=== PATIENT | male | born 1945 | race African-American/Black ===

== ENCOUNTER 2017-08-11 18:40 | Inpatient (IN) | payer MEDICARE, MEDICAID ==
[~2017-08-11] VITALS: Ht 190.5 cm; Wt 90.7 kg
[~2017-08-11 18:40] MED LIST: ASPI-867 PO; BENA40TA3 PO; CALC-1042 PO; CLOP75TA15 PO; DOCU100T8; FERR140T PO; FLONAS NS; GABA-531 PO; HYDROCODONE PO; IBUP-2028 PO; LEVPEN SQ; LORA10CA PO; MAGN400C PO; MELA300T PO; OMEP20CA10 PO; P20 PO; SIMV10TA6 PO; SUMA25TA9 PO; TRAM50TA PO; VERA-3; VITAMIN B2 PO; [UNRECOGNIZED DRUG - CODE] PO
[2017-08-11] MEDS ORDERED: ONDANSETRON HCL 4MG/2ML VIAL IV STA (19:20)
[2017-08-11] MEDS ORDERED: FAMOTIDINE 20MG/2ML VIAL IV STA (19:20)
[2017-08-11] MEDS ORDERED: MORPHINE SULFATE 4 MG/ML CPJ (NOT FOR IM USE) IV STA (19:20)
[2017-08-11 19:52] LABS: HEMATOCRIT. 35.6 % (42.0-52.0); HEMOGLOBIN. 11.6 g/dL (14.0-18.0); MEAN PLATELET VOLUME 9.7 fl (7.4-10.4); PLATELET 132 x1000/uL (130-400); RED BLOOD CELL COUNT 4.29 mill/uL (4.7-6.1); RED CELL DISTRIBUTION WIDTH 18.3 % (11.6-14.6)
[2017-08-11 20:00] LABS: INR 1.1; PROTHROMBIN TIME 11.4 sec (9.4-11.6)
[2017-08-11] MEDS ORDERED: MORPHINE SULFATE 10 MG/ML CPJ IV NR (20:00)
[2017-08-11 20:04] LABS: CHLORIDE 106 mEq/L (98-107)
[2017-08-11 20:09] LABS: CARBON DIOXIDE 27 mEq/L (21-32); ETHANOL BLOOD < 10 mg/dL
[2017-08-11 20:14] LABS: TROPONIN I < 0.02 ng/mL (0.00-0.04)
[2017-08-11 20:41] LABS: CLARITY URINE CLOUDY (CLEAR); COLOR URINE YELLOW (YELLOW); GLUCOSE URINE NEGATIVE (NEGATIVE); KETONES URINE NEGATIVE (NEGATIVE); LEUKOCYTE ESTERASE URINE 3+ (NEGATIVE); NITRITE URINE POSITIVE (NEGATIVE); OCCULT BLOOD URINE 3+ (NEGATIVE); PROTEIN URINE 2+ (NEGATIVE); SPECIFIC GRAVITY URINE 1.018 (1.005-1.030)
[2017-08-11 20:42] LABS: PLATELET ESTIMATE NORMAL
[2017-08-11 20:55] LABS: *AMPHETAMINES SCREEN URINE NEGATIVE (NEGATIVE); *BARBITURATES SCREEN URINE NEGATIVE (NEGATIVE); *BENZODIAZEPINES SCREEN URINE NEGATIVE (NEGATIVE); *COCAINE SCREEN URINE NEGATIVE (NEGATIVE); CANNABINOID URINE SCREEN NEGATIVE (NEGATIVE); METHADONE URINE SCREEN NEGATIVE (NEGATIVE); OPIATES URINE SCREEN NEGATIVE (NEGATIVE); PHENCYCLIDINE URINE SCREEN NEGATIVE (NEGATIVE)
[2017-08-11] MEDS ORDERED: CEFTRIAXONE 1 G PREMIX 50 ML IV NR (21:30)
[2017-08-11] MEDS ORDERED: NA PHOS,M-B/NA PHOS,DI-BA ENEMA 118ML PR PRN (22:45)
[2017-08-11] MEDS ORDERED: IPRATROPIUM/ALBUTEROL 0.5-3(2.5)MG/3ML NEB INH PRN (22:45)
[2017-08-11] MEDS ORDERED: HYDROCODONE/APAP 7.5/325MG 1 TAB TABLET PO PRN (22:45)
[2017-08-11] MEDS ORDERED: ACETAMINOPHEN 325MG TABLET PO PRN (22:45)
[2017-08-11] MEDS ORDERED: ONDANSETRON HCL 4MG/2ML VIAL IV PRN (22:45)
[2017-08-11] MEDS ORDERED: DOCUSATE SODIUM 100MG CAPSULE PO PRN (22:45)
[2017-08-11] MEDS ORDERED: MAGNESIUM/ALUMINUM HYDROXIDE/SIMETHICONE 30ML UDC PO PRN (22:45)
[2017-08-11] MEDS ORDERED: GUAIFENESIN 200MG/10ML SUGAR FREE UDC PO PRN (22:45)
[2017-08-11] MEDS: MORPHINE SULFATE 2 MG/ML CPJ (NOT FOR IM USE) IV PRN (23:12)
[2017-08-12] VITALS: BP 162/84
[2017-08-12 00:30] LABS: CARBON DIOXIDE 28 mEq/L (21-32); CHLORIDE 107 mEq/L (98-107)
[2017-08-12] MEDS ORDERED: SODIUM CHLORIDE 0.45% 1,000 ML IV SCH (03:00)
[2017-08-12] MEDS ORDERED: LEVOFLOXACIN 500MG PREMIX 100 ML IV SCH (04:00)
[2017-08-12] MEDS: MORPHINE SULFATE 2 MG/ML CPJ (NOT FOR IM USE) IV PRN ×3 (04:30→17:21)
[2017-08-12 04:33] VITALS: BP 113/68
[2017-08-12 07:55] LABS: BASOPHILS % 0.4 % (0.0-2.0); EOSINOPHILS % 0.8 % (0.0-5.0); HEMATOCRIT. 32.1 % (42.0-52.0); HEMOGLOBIN. 10.3 g/dL (14.0-18.0); LYMPHOCYTES % 24.6 % (20.0-50.0); MEAN CORPUSCULAR HEMOGLOBIN 26.4 pg (28.0-32.0); MEAN CORPUSCULAR VOLUME 82.3 fL (80.0-94.0); MEAN PLATELET VOLUME 10.1 fl (7.4-10.4); MONOCYTES % 14.6 % (2.0-8.0); NEUTROPHILS % 59.6 % (40.0-76.0); PLATELET 118 x1000/uL (130-400); RED CELL DISTRIBUTION WIDTH 18.4 % (11.6-14.6)
[2017-08-12 08:00] VITALS: BP 135/68
[2017-08-12 08:01] LABS: CARBON DIOXIDE 28 mEq/L (21-32); CHLORIDE 106 mEq/L (98-107)
[2017-08-12] MEDS ORDERED: CLOP75TA16 PO (08:04)
[2017-08-12] MEDS ORDERED: ASPI-1159 PO (08:04)
[2017-08-12] MEDS ORDERED: TAMS-11 PO (08:04)
[2017-08-12] MEDS: ENOXAPARIN 40MG/0.4ML SYR SUBCUT SCH (09:58)
[2017-08-12 12:00] VITALS: BP 159/65
[2017-08-12 16:00] VITALS: BP 148/68
[2017-08-12] MEDS: CLONIDINE 0.1MG TABLET PO PRN (17:19)
[2017-08-12 20:00] VITALS: BP 127/65
[2017-08-13] MEDS: MORPHINE SULFATE 2 MG/ML CPJ (NOT FOR IM USE) IV PRN ×5 (02:21→22:09)
[2017-08-13 02:33] VITALS: BP 164/70
[2017-08-13 04:00] VITALS: BP 159/68
[2017-08-13] MEDS: LEVOFLOXACIN 500MG PREMIX 100 ML IV SCH (04:53)
[2017-08-13 08:00] VITALS: BP 160/65
[2017-08-13] MEDS: ENOXAPARIN 40MG/0.4ML SYR SUBCUT SCH (10:06)
[2017-08-13 12:00] VITALS: BP 148/62
[2017-08-13 16:00] VITALS: BP 145/65
[2017-08-13 20:00] VITALS: BP 157/73
[2017-08-14] VITALS: BP 145/85
[2017-08-14] MEDS: DIPHENHYDRAMINE 50MG/ML VIAL IV PRN ×3 (01:04→05:42)
[2017-08-14] MEDS: LORAZEPAM 0.5MG TABLET PO PRN ×3 (01:04→05:42)
[2017-08-14 04:00] VITALS: BP 176/67
[2017-08-14] MEDS: LEVOFLOXACIN 500MG PREMIX 100 ML IV SCH (04:04)
[2017-08-14] MEDS: MORPHINE SULFATE 2 MG/ML CPJ (NOT FOR IM USE) IV PRN (05:12)
[2017-08-14] MEDS: CLONIDINE 0.1MG TABLET PO PRN (05:42)
[2017-08-14 07:44] LABS: BASOPHILS % 0.8 % (0.0-2.0); EOSINOPHILS % 0.8 % (0.0-5.0); HEMATOCRIT. 33.5 % (42.0-52.0); HEMOGLOBIN. 10.7 g/dL (14.0-18.0); LYMPHOCYTES % 19.6 % (20.0-50.0); MEAN CORPUSCULAR HEMOGLOBIN 26.2 pg (28.0-32.0); MEAN CORPUSCULAR VOLUME 81.8 fL (80.0-94.0); MEAN PLATELET VOLUME 9.7 fl (7.4-10.4); MONOCYTES % 13.4 % (2.0-8.0); NEUTROPHILS % 65.4 % (40.0-76.0); PLATELET 154 x1000/uL (130-400); RED BLOOD CELL COUNT 4.09 mill/uL (4.7-6.1); RED CELL DISTRIBUTION WIDTH 17.9 % (11.6-14.6)
[2017-08-14 08:00] VITALS: BP 133/67
[2017-08-14 08:41] LABS: CARBON DIOXIDE 26 mEq/L (21-32); CHLORIDE 106 mEq/L (98-107)
[2017-08-14] MEDS: ENOXAPARIN 40MG/0.4ML SYR SUBCUT SCH (08:55)
[2017-08-14] MEDS ORDERED: DEXTROSE 50% WATER 50ML SYRINGE IV PRN (11:45)
[2017-08-14 12:00] VITALS: BP 193/77
[2017-08-14] MEDS: INSULIN LISPRO 100 UNITS/ML SUBCUT SCH ×3 (12:26→21:00)
[2017-08-14] MEDS: BLOOD SUGAR DIAGNOSTIC STRIP TEST SCH ×3 (12:26→21:00)
[2017-08-14 16:00] VITALS: BP 124/77
[2017-08-14 20:00] VITALS: BP 136/75
[2017-08-15] VITALS: BP 134/60
[2017-08-15 04:00] VITALS: BP 137/72
[2017-08-15] MEDS: LEVOFLOXACIN 500MG PREMIX 100 ML IV SCH (05:01)
[2017-08-15] MEDS: BLOOD SUGAR DIAGNOSTIC STRIP TEST SCH ×2 (06:35→12:20)
[2017-08-15 06:52] LABS: HEMATOCRIT 33.4 % (42.0-52.0); MEAN CORPUSCULAR HEMOGLOBIN 26.8 pg (28.0-32.0); MEAN CORPUSCULAR VOLUME 81.3 fL (80.0-94.0); PLATELET 150 x1000/uL (130-400); RED CELL DISTRIBUTION WIDTH 17.9 % (11.6-14.6)
[2017-08-15 08:00] VITALS: BP 175/84
[2017-08-15 08:03] LABS: CARBON DIOXIDE 27 mEq/L (21-32); CHLORIDE 104 mEq/L (98-107)
[2017-08-15 12:00] VITALS: BP 143/69
[2017-08-15 14:02] VITALS: BP 143/69
[2017-08-16] MEDS ORDERED: LEVOFLOXACIN 500MG TABLET PO SCH (11:00)
== END 2017-08-15 14:35 | disposition home or self-care (01) | DRG 690 ==
LOC: ER 19:13 → ENRESERV 22:05 → 6EST 22:11 → EDBEDREQSVC 22:18 → EDBEDREQTM 22:18 → EDBEDREQ 22:18 → ENRESERV 23:15
PROVIDERS: ADMIT Internal Medicine; ATTEND Internal Medicine
DX: N39.0 Urinary tract infection, site not specified (principal); I11.0 Hypertensive heart disease with heart failure; E11.9 Type 2 diabetes mellitus without complications; I50.9 Heart failure, unspecified; R65.10 Systemic inflammatory response syndrome (SIRS) of non-infectious origin without acute organ dysfunction; E86.0 Dehydration; K59.00 Constipation, unspecified; I25.10 Atherosclerotic heart disease of native coronary artery without angina pectoris; Z79.4 Long term (current) use of insulin; Z79.82 Long term (current) use of aspirin; Z79.02 Long term (current) use of antithrombotics/antiplatelets; Z79.899 Other long term (current) drug therapy; I25.2 Old myocardial infarction
CPT/HCPCS: 36415; 71010; 74176; 80048; 80053; 80305; 81001; 82962; 83605; 83690; 83880; 84484; 85025; 85027; 85610; 87086; 93005; 96365; 96375; 96376; 99285; G0482; J0696; J1200; J1650; J1956; J2270; J2405; J3490

== ENCOUNTER 2019-01-12 19:44 | Inpatient (IN) | payer MEDICARE, MEDICAID ==
[~2019-01-12] VITALS: Ht 193 cm; Wt 94.4 kg
[~2019-01-12 19:44] MED LIST changes: +ASA5EC PO; +ASPI-1159 PO; -ASPI-867 PO; -BENA40TA3 PO; +BENA40TA9 PO; +CLOP75TA16 PO; -FERR140T PO; +FERR140T2 PO; +TAMS-11 PO
[2019-01-12] MEDS ORDERED: SODIUM CHLORIDE 0.9% 1,000 ML IV ONE (21:02)
[2019-01-12] MEDS ORDERED: ONDANSETRON HCL 4MG/2ML INJ IV ONE (21:15)
[2019-01-12] MEDS ORDERED: FENTANYL CITRATE/PF 50MCG/ML 2ML VIAL IV ONE (21:15)
[2019-01-12 21:34] LABS: HEMATOCRIT. 33.5 % (42.0-52.0); MEAN CORPUSCULAR HEMOGLOBIN 27.8 pg (28.0-32.0); MEAN PLATELET VOLUME 8.7 fl (7.4-10.4); PLATELET 210 x1000/uL (130-400); RED BLOOD CELL COUNT 3.94 mill/uL (4.7-6.1); RED CELL DISTRIBUTION WIDTH 17.1 % (11.6-14.6)
[2019-01-12 21:38] LABS: CHLORIDE 108 mEq/L (98-107)
[2019-01-12 21:42] LABS: PARTIAL THROMBOPLASTIN TIME 27.6 sec (23.4-31.0); PROTHROMBIN TIME 10.7 sec (9.6-11.0)
[2019-01-12 21:48] LABS: PLATELET ESTIMATE NORMAL
[2019-01-12] MEDS ORDERED: CLONIDINE 0.1MG TABLET PO PRN (22:45)
[2019-01-12] MEDS ORDERED: DOCUSATE SODIUM 100MG CAPSULE PO PRN (22:45)
[2019-01-12] MEDS ORDERED: GUAIFENESIN 200MG/10ML SUGAR FREE UDC PO PRN (22:45)
[2019-01-12] MEDS ORDERED: LORAZEPAM 0.5MG TABLET PO PRN (22:45)
[2019-01-12] MEDS ORDERED: LEVOFLOXACIN 500MG PREMIX 100 ML IV ONE (22:45)
[2019-01-12] MEDS ORDERED: IPRATROPIUM/ALBUTEROL 0.5-3(2.5)MG/3ML NEB INH PRN (22:45)
[2019-01-12] MEDS ORDERED: MAGNESIUM/ALUMINUM HYDROXIDE/SIMETHICONE 30ML UDC PO PRN (22:45)
[2019-01-12] MEDS ORDERED: DEXTROSE 50% WATER 50ML SYRINGE IV PRN (22:45)
[2019-01-12] MEDS ORDERED: ACETAMINOPHEN 325MG TABLET PO PRN (22:45)
[2019-01-12] MEDS ORDERED: ONDANSETRON HCL 4MG/2ML INJ IV PRN (22:45)
[2019-01-12] MEDS ORDERED: ZOLPIDEM TARTRATE 5MG TABLET PO PRN (22:45)
[2019-01-12] MEDS ORDERED: CEFTRIAXONE 1 G PREMIX 50 ML IV ONE (22:45)
[2019-01-12] MEDS: MORPHINE SULFATE 4 MG/ML CPJ (NOT FOR IM USE) IV PRN (23:57)
[2019-01-13] VITALS (16 sets, daily range): BP systolic 104–196; BP diastolic 40–118
[2019-01-13 00:01] LABS: FOLIC ACID (FOLATE) SERUM >20 ng/mL ng/mL (>5.38)
[2019-01-13 00:11] LABS: VITAMIN B12 SERUM 536 pg/mL (211-911)
[2019-01-13 01:54] LABS: CLARITY URINE TURBID (CLEAR); KETONES URINE 1+ (NEGATIVE); LEUKOCYTE ESTERASE URINE 2+ (NEGATIVE); NITRITE URINE POSITIVE (NEGATIVE); OCCULT BLOOD URINE 3+ (NEGATIVE); PROTEIN URINE 4+ (NEGATIVE); SPECIFIC GRAVITY URINE 1.038 (1.005-1.030)
[2019-01-13 02:00] LABS: COLOR URINE BLOODY (YELLOW)
[2019-01-13 02:01] LABS: *AMPHETAMINES SCREEN URINE NEGATIVE (NEGATIVE); *BARBITURATES SCREEN URINE NEGATIVE (NEGATIVE); *BENZODIAZEPINES SCREEN URINE NEGATIVE (NEGATIVE); CANNABINOID URINE SCREEN NEGATIVE (NEGATIVE); PHENCYCLIDINE URINE SCREEN NEGATIVE (NEGATIVE)
[2019-01-13 02:02] LABS: *COCAINE SCREEN URINE NEGATIVE (NEGATIVE); METHADONE URINE SCREEN NEGATIVE (NEGATIVE); OPIATES URINE SCREEN PRESUMTIVE POSITIVE (NEGATIVE)
[2019-01-13] MEDS: BLOOD SUGAR DIAGNOSTIC STRIP TEST SCH ×4 (07:30→21:00)
[2019-01-13] MEDS: INSULIN LISPRO 100 UNITS/ML SUBCUT SCH ×4 (08:00→21:00)
[2019-01-13] MEDS: FAMOTIDINE 20MG TABLET PO SCH ×2 (08:40→21:11)
[2019-01-13] MEDS: AMLODIPINE 10MG TABLET PO SCH (08:40)
[2019-01-13] MEDS: ASCORBIC ACID 500 MG TABLET PO SCH ×2 (08:41→21:11)
[2019-01-13] MEDS: METOPROLOL TARTRATE 25MG TABLET PO SCH ×2 (08:41→21:00)
[2019-01-13] MEDS: TRAMADOL 50MG TABLET PO PRN (08:42)
[2019-01-13] MEDS: CEFTRIAXONE 1 G PREMIX 50 ML IV SCH (17:27)
[2019-01-13] MEDS: LEVOFLOXACIN 500MG PREMIX 100 ML IV SCH (17:28)
[2019-01-13] MEDS ORDERED: CEFTRIAXONE 1 G PREMIX 50 ML IV SCH (22:00)
[2019-01-13] MEDS ORDERED: LEVOFLOXACIN 500MG PREMIX 100 ML IV SCH (23:00)
[2019-01-14] VITALS (12 sets, daily range): BP systolic 128–151; BP diastolic 51–86
[2019-01-14] MEDS: BLOOD SUGAR DIAGNOSTIC STRIP TEST SCH ×4 (07:30→20:46)
[2019-01-14] MEDS: INSULIN LISPRO 100 UNITS/ML SUBCUT SCH ×4 (08:00→20:52)
[2019-01-14] MEDS: FAMOTIDINE 20MG TABLET PO SCH ×2 (09:01→20:43)
[2019-01-14] MEDS: AMLODIPINE 10MG TABLET PO SCH (09:02)
[2019-01-14] MEDS: ASCORBIC ACID 500 MG TABLET PO SCH ×2 (09:02→20:43)
[2019-01-14] MEDS: METOPROLOL TARTRATE 25MG TABLET PO SCH ×2 (09:08→20:44)
[2019-01-14] MEDS: LEVOFLOXACIN 500MG PREMIX 100 ML IV SCH (16:43)
[2019-01-14] MEDS: TRAMADOL 50MG TABLET PO PRN (16:48)
[2019-01-14] MEDS: CEFTRIAXONE 1 G PREMIX 50 ML IV SCH (17:58)
[2019-01-15] VITALS (10 sets, daily range): BP systolic 124–161; BP diastolic 64–85
[2019-01-15] MEDS: INSULIN LISPRO 100 UNITS/ML SUBCUT SCH ×3 (08:00→21:00)
[2019-01-15] MEDS: BLOOD SUGAR DIAGNOSTIC STRIP TEST SCH ×3 (08:00→20:35)
[2019-01-15] MEDS: METOPROLOL TARTRATE 25MG TABLET PO SCH ×2 (09:00→20:38)
[2019-01-15] MEDS: FAMOTIDINE 20MG TABLET PO SCH ×2 (09:26→20:36)
[2019-01-15] MEDS: AMLODIPINE 10MG TABLET PO SCH (09:26)
[2019-01-15] MEDS: ASCORBIC ACID 500 MG TABLET PO SCH ×2 (09:26→20:36)
[2019-01-15] MEDS: LEVOFLOXACIN 500MG TABLET PO SCH (11:16)
[2019-01-15] MEDS: TRAMADOL 50MG TABLET PO PRN (20:37)
[2019-01-16] VITALS (12 sets, daily range): BP systolic 98–191; BP diastolic 44–77
[2019-01-16] MEDS: MORPHINE SULFATE 4 MG/ML CPJ (NOT FOR IM USE) IV PRN (00:47)
[2019-01-16] MEDS: BLOOD SUGAR DIAGNOSTIC STRIP TEST SCH ×4 (07:30→21:16)
[2019-01-16] MEDS: INSULIN LISPRO 100 UNITS/ML SUBCUT SCH ×4 (08:00→21:00)
[2019-01-16] MEDS: ASCORBIC ACID 500 MG TABLET PO SCH ×2 (08:38→20:55)
[2019-01-16] MEDS: AMLODIPINE 10MG TABLET PO SCH (08:38)
[2019-01-16] MEDS: FAMOTIDINE 20MG TABLET PO SCH ×2 (08:38→20:54)
[2019-01-16] MEDS: METOPROLOL TARTRATE 25MG TABLET PO SCH ×2 (08:38→20:53)
[2019-01-16] MEDS: LEVOFLOXACIN 500MG TABLET PO SCH (11:28)
[2019-01-16] MEDS: CEFTRIAXONE 1 G PREMIX 50 ML IV SCH ×2 (16:38→16:40)
[2019-01-17] VITALS: BP 101/47
[2019-01-17 04:00] VITALS: BP 151/53
[2019-01-17] MEDS: BLOOD SUGAR DIAGNOSTIC STRIP TEST SCH ×4 (07:01→21:41)
[2019-01-17] MEDS: INSULIN LISPRO 100 UNITS/ML SUBCUT SCH ×4 (07:02→21:00)
[2019-01-17 08:00] VITALS: BP 117/72
[2019-01-17] MEDS: FAMOTIDINE 20MG TABLET PO SCH ×2 (08:58→21:40)
[2019-01-17] MEDS: ASCORBIC ACID 500 MG TABLET PO SCH ×2 (08:58→21:40)
[2019-01-17] MEDS: METOPROLOL TARTRATE 25MG TABLET PO SCH ×2 (08:59→21:40)
[2019-01-17] MEDS: AMLODIPINE 10MG TABLET PO SCH (08:59)
[2019-01-17] MEDS: LEVOFLOXACIN 500MG TABLET PO SCH (10:58)
[2019-01-17 12:18] VITALS: BP 141/59
[2019-01-17 16:00] VITALS: BP_SYST 126; BP_SYST 149; BP_DIAS 48; BP_DIAS 60
[2019-01-17] MEDS: CEFTRIAXONE 1 G PREMIX 50 ML IV SCH (18:00)
[2019-01-17 20:31] VITALS: BP 124/49
[2019-01-18 00:10] VITALS: BP 124/63
[2019-01-18 04:00] VITALS: BP 133/53
[2019-01-18] MEDS: INSULIN LISPRO 100 UNITS/ML SUBCUT SCH ×4 (07:50→21:00)
[2019-01-18] MEDS: BLOOD SUGAR DIAGNOSTIC STRIP TEST SCH ×4 (07:54→21:00)
[2019-01-18] MEDS: FAMOTIDINE 20MG TABLET PO SCH ×2 (09:17→20:31)
[2019-01-18] MEDS: AMLODIPINE 10MG TABLET PO SCH (09:17)
[2019-01-18] MEDS: METOPROLOL TARTRATE 25MG TABLET PO SCH ×2 (09:17→20:31)
[2019-01-18] MEDS: ASCORBIC ACID 500 MG TABLET PO SCH ×2 (09:17→20:30)
[2019-01-18] MEDS: LEVOFLOXACIN 500MG TABLET PO SCH (11:00)
[2019-01-18 12:00] VITALS: BP_SYST 104; BP_SYST 128; BP_DIAS 49; BP_DIAS 79
[2019-01-18 17:33] VITALS: BP 104/79
[2019-01-18] MEDS: CEFTRIAXONE 1 G PREMIX 50 ML IV SCH (17:43)
[2019-01-18 20:00] VITALS: BP 126/53
[2019-01-19] VITALS: BP 124/50
== END 2019-01-19 00:45 | DRG 871 ==
LOC: ER 19:44 → SUPCPDRO 22:42 → EDBEDREQTM 23:12 → EDBEDREQ 23:12 → EDBEDREQSVC 23:12 → CANRESERV 23:29 → ENRESERV 23:29 → EDBEDREQSVC 01-13 00:14 → EDBEDREQDT 01-13 00:14 → EDBEDREQTM 01-13 00:14 → ENRESERV 01-13 00:17 → 5EST 01-13 01:34 → 6WST 01-16 22:55
PROVIDERS: ADMIT Internal Medicine; ATTEND Internal Medicine
PROC: 3E1K38Z Irrigation of Genitourinary Tract using Irrigating Substance, Percutaneous Approach (ICD-10-PCS; principal; 2019-01-13)
DX: A41.9 Sepsis, unspecified organism (principal); G92 Toxic encephalopathy; D62 Acute posthemorrhagic anemia; E11.9 Type 2 diabetes mellitus without complications; I10 Essential (primary) hypertension; R31.0 Gross hematuria; R33.9 Retention of urine, unspecified; T83.098A Other mechanical complication of other urinary catheter, initial encounter; Y84.6 Urinary catheterization as the cause of abnormal reaction of the patient, or of later complication, without mention of misadventure at the time of the procedure; Y92.89 Other specified places as the place of occurrence of the external cause; Z92.3 Personal history of irradiation; Z79.82 Long term (current) use of aspirin; Z85.46 Personal history of malignant neoplasm of prostate; Z79.899 Other long term (current) drug therapy
CPT/HCPCS: 36415; 80061; 80305; 82607; 82746; 82962; 83036; 83540; 83550; 83605; 83880; 84145; 84484; 86850; 86900; 93005; 93970; 97116; 97162; 97166; 97530; 99291; J0696; J1956; J2270; J2405; J3010; J7030; J7050; A4315

== ENCOUNTER 2019-01-25 12:05 | Emergency (ER) | payer MEDICARE, MEDICAID ==
[~2019-01-25] VITALS: Ht 203.2 cm; Wt 107.0 kg
[2019-01-25 14:30] LABS: CLARITY URINE CLOUDY (CLEAR); COLOR URINE YELLOW (YELLOW); KETONES URINE NEGATIVE (NEGATIVE); LEUKOCYTE ESTERASE URINE 3+ (NEGATIVE); NITRITE URINE POSITIVE (NEGATIVE); OCCULT BLOOD URINE 3+ (NEGATIVE); PH URINE 6.5 (4.5-8.0); PROTEIN URINE 2+ (NEGATIVE); SPECIFIC GRAVITY URINE 1.013 (1.005-1.030); UROBILINOGEN URINE 0.2 E.U./dL (0.2-1.0)
[2019-01-25] MEDS ORDERED: CEFTRIAXONE 1 G PREMIX 50 ML IV ONE (16:30)
[2019-01-25 22:10] VITALS: BP 113/65
== END 2019-01-25 21:50 ==
LOC: ER 12:05
DX: R33.8 Other retention of urine (principal); N39.0 Urinary tract infection, site not specified; Z85.46 Personal history of malignant neoplasm of prostate; Z92.3 Personal history of irradiation; I10 Essential (primary) hypertension; E11.9 Type 2 diabetes mellitus without complications
CPT/HCPCS: 51702; 81003; 87086; 96365; 99284; J0696; A4315

== ENCOUNTER 2019-01-27 22:07 | Emergency (ER) | payer MEDICARE, MEDICAID ==
[~2019-01-27] VITALS: Ht 190.5 cm; Wt 79.0 kg
[2019-01-28] MEDS ORDERED: HYDROCODONE/ACETAMINOPHEN 5/325MG TABLET PO STA (02:37)
[2019-01-28] MEDS ORDERED: SODIUM CHLORIDE 0.9% 500 ML IV ONE (02:45)
[2019-01-28 03:04] LABS: HEMATOCRIT. 30.6 % (42.0-52.0); MEAN CORPUSCULAR HEMOGLOBIN 27.4 pg (28.0-32.0); MEAN CORPUSCULAR VOLUME 84.4 fL (80.0-94.0); MEAN PLATELET VOLUME 8.1 fl (7.4-10.4); PLATELET 231 x1000/uL (130-400); RED BLOOD CELL COUNT 3.63 mill/uL (4.7-6.1)
[2019-01-28 03:11] LABS: CHLORIDE 109 mEq/L (98-107)
[2019-01-28 03:14] LABS: PARTIAL THROMBOPLASTIN TIME 32.1 sec (23.4-31.0); PROTHROMBIN TIME 10.5 sec (9.6-11.0)
[2019-01-28 03:37] LABS: PLATELET ESTIMATE NORMAL
[2019-01-28] MEDS ORDERED: CEPHALEXIN 250MG CAPSULE PO ONE (04:30)
[2019-01-28 09:29] VITALS: BP 154/71
== END 2019-01-28 09:30 | disposition home or self-care (01) ==
LOC: ER 22:07
DX: Z46.6 Encounter for fitting and adjustment of urinary device (principal); R33.8 Other retention of urine; R31.0 Gross hematuria; I10 Essential (primary) hypertension
CPT/HCPCS: 36415; 51702; 80053; 83605; 85025; 85610; 85730; 99284; J7040; A4315

== ENCOUNTER 2019-02-09 19:03 | Emergency (ER) | payer MEDICARE, MEDICAID ==
[~2019-02-09] VITALS: Ht 185.4 cm; Wt 90.0 kg
[~2019-02-09 19:03] MED LIST changes: -ASPI-1159 PO; +ASPI-1393 PO; -CLOP75TA16 PO; +CLOP75TA4 PO; -OMEP20CA10 PO; +OMEP20CA5 PO; -VERA-3; +VERA120T13
[2019-02-09] MEDS ORDERED: LIDOCAINE HCL 2% JELLY 5ML MM ONE (20:15)
[2019-02-09] MEDS ORDERED: MORPHINE SULFATE 10 MG/ML CPJ IM ONE (20:15)
[2019-02-09 23:58] VITALS: BP 135/71
== END 2019-02-10 00:07 | disposition home or self-care (01) ==
LOC: ER 19:03
DX: T83.018A Breakdown (mechanical) of other urinary catheter, initial encounter (principal); D64.9 Anemia, unspecified; E11.9 Type 2 diabetes mellitus without complications; I10 Essential (primary) hypertension; F03.90 Unspecified dementia, unspecified severity, without behavioral disturbance, psychotic disturbance, mood disturbance, and anxiety; Z86.718 Personal history of other venous thrombosis and embolism; Z79.899 Other long term (current) drug therapy
CPT/HCPCS: 51702; 96372; 99284; J2270; A4315

== ENCOUNTER 2019-04-16 11:17 | Emergency (ER) | payer MEDICARE, MEDICAID ==
[~2019-04-16] VITALS: Ht 172.7 cm; Wt 82.0 kg
[2019-04-16 13:53] VITALS: BP 137/64
== END 2019-04-16 14:02 | disposition home or self-care (01) ==
LOC: ER 11:17
DX: T85.628A Displacement of other specified internal prosthetic devices, implants and grafts, initial encounter (principal); D64.9 Anemia, unspecified; E11.9 Type 2 diabetes mellitus without complications; I10 Essential (primary) hypertension; F03.90 Unspecified dementia, unspecified severity, without behavioral disturbance, psychotic disturbance, mood disturbance, and anxiety; Z86.718 Personal history of other venous thrombosis and embolism; Z85.46 Personal history of malignant neoplasm of prostate; Z79.899 Other long term (current) drug therapy
CPT/HCPCS: 82962; 99283

== ENCOUNTER 2019-06-02 21:26 | Inpatient (IN) | payer MEDICARE, MEDICAID ==
[~2019-06-02] VITALS: Ht 188 cm; Wt 88.5 kg
[~2019-06-02 21:26] MED LIST changes: -ASA5EC PO; +ASPI325T85 PO
[2019-06-02] MEDS ORDERED: SODIUM CHLORIDE 0.9% 1,000 ML IV ONE (22:47)
[2019-06-02] MEDS ORDERED: DEXTROSE 50% WATER 50ML SYRINGE IV PRN (23:00)
[2019-06-02] MEDS ORDERED: GUAIFENESIN 200MG/10ML SUGAR FREE UDC PO PRN (23:00)
[2019-06-02] MEDS ORDERED: TRAMADOL 50MG TABLET PO PRN (23:00)
[2019-06-02] MEDS ORDERED: ONDANSETRON HCL 4MG/2ML INJ IV PRN (23:00)
[2019-06-02] MEDS ORDERED: ACETAMINOPHEN 325MG TABLET PO PRN (23:00)
[2019-06-02] MEDS ORDERED: CLONIDINE 0.1MG TABLET PO PRN (23:00)
[2019-06-02] MEDS ORDERED: MORPHINE SULFATE 2 MG/ML CPJ (NOT FOR IM USE) IV PRN (23:00)
[2019-06-02] MEDS ORDERED: ENOXAPARIN 40MG/0.4ML SYR SUBCUT SCH (23:00)
[2019-06-02] MEDS ORDERED: NITROGLYCERIN 0.4MG TABLET SL SL PRN (23:00)
[2019-06-02] MEDS ORDERED: IPRATROPIUM/ALBUTEROL 0.5-3(2.5)MG/3ML NEB NEB PRN (23:00)
[2019-06-02] MEDS ORDERED: PIPERACILLIN/TAZ 3.375G PREMIX 50 ML IV ONE (23:00)
[2019-06-02] MEDS ORDERED: VANCOMYCIN 1 G PREMIX 200 ML IV ONE (23:00)
[2019-06-02] MEDS ORDERED: ZOLPIDEM TARTRATE 5MG TABLET PO PRN (23:00)
[2019-06-02] MEDS ORDERED: DOCUSATE SODIUM 100MG CAPSULE PO PRN (23:00)
[2019-06-02] MEDS ORDERED: MAGNESIUM/ALUMINUM HYDROXIDE/SIMETHICONE 30ML UDC PO PRN (23:00)
[2019-06-03] VITALS (7 sets, daily range): BP systolic 127–163; BP diastolic 56–78
[2019-06-03 00:28] LABS: BASOPHILS % 1.3 % (0.0-2.0); EOSINOPHILS % 7.1 % (0.0-5.0); LYMPHOCYTES % 12.2 % (20.0-50.0); MEAN CORPUSCULAR HEMOGLOBIN 26.7 pg (28.0-32.0); MEAN CORPUSCULAR VOLUME 83.3 fL (80.0-94.0); MEAN PLATELET VOLUME 7.6 fl (7.4-10.4); MONOCYTES % 11.4 % (2.0-8.0); PLATELET 170 x1000/uL (130-400); RED BLOOD CELL COUNT 3.72 mill/uL (4.7-6.1)
[2019-06-03 00:34] LABS: CHLORIDE 109 mEq/L (98-107)
[2019-06-03] MEDS ORDERED: FAMO20TA8 PO (03:27)
[2019-06-03] MEDS ORDERED: MOM MT (03:27)
[2019-06-03] MEDS ORDERED: HYDR-4135 PO (03:27)
[2019-06-03] MEDS ORDERED: DOXAZOCIN PO (03:27)
[2019-06-03] MEDS ORDERED: DOCU250C69 PO (03:27)
[2019-06-03] MEDS ORDERED: BISA10SU62 RC (03:27)
[2019-06-03] MEDS ORDERED: IPRA3AMP9 HHN (03:27)
[2019-06-03] MEDS ORDERED: INSU100I13 SQ (03:27)
[2019-06-03] MEDS ORDERED: AMLO5TAB88 PO (03:27)
[2019-06-03] MEDS: PIPERACILLIN/TAZOBACTAM 3.375 G in DEXT 5% WATER 100 ML IV SCH ×3 (05:52→22:00)
[2019-06-03] MEDS: BLOOD SUGAR DIAGNOSTIC STRIP TEST SCH ×4 (06:23→20:16)
[2019-06-03] MEDS: INSULIN LISPRO 100 UNITS/ML SUBCUT SCH ×4 (06:24→20:21)
[2019-06-03] MEDS: ENOXAPARIN 30MG/0.3ML SYR SUBCUT SCH ×2 (08:04→20:16)
[2019-06-03] MEDS: FAMOTIDINE 20MG TABLET PO SCH ×2 (08:05→20:16)
[2019-06-03] MEDS: ASCORBIC ACID 500 MG TABLET PO SCH ×2 (08:05→20:16)
[2019-06-03] MEDS: ASPIRIN 81MG EC TABLET PO SCH (08:05)
[2019-06-03] MEDS: CLOPIDOGREL 75MG TABLET PO SCH (08:05)
[2019-06-03] MEDS: ZINC SULFATE 220 MG ( 50 ) CAPSULE PO SCH (08:05)
[2019-06-03] MEDS: VANCOMYCIN 1 G PREMIX 200 ML IV SCH ×2 (10:13→22:00)
[2019-06-03 12:30] LABS: CLARITY URINE CLOUDY (CLEAR); COLOR URINE YELLOW (YELLOW); KETONES URINE NEGATIVE (NEGATIVE); LEUKOCYTE ESTERASE URINE 3+ (NEGATIVE); NITRITE URINE NEGATIVE (NEGATIVE); OCCULT BLOOD URINE 1+ (NEGATIVE); PROTEIN URINE 2+ (NEGATIVE); SPECIFIC GRAVITY URINE 1.019 (1.005-1.030); UROBILINOGEN URINE 0.2 E.U./dL (0.2-1.0)
[2019-06-03] MEDS: ATORVASTATIN CALCIUM 10MG TABLET PO SCH (20:15)
[2019-06-04] VITALS: BP 153/69
[2019-06-04 04:00] VITALS: BP 141/61
[2019-06-04] MEDS: PIPERACILLIN/TAZOBACTAM 3.375 G in DEXT 5% WATER 100 ML IV SCH ×3 (05:01→20:51)
[2019-06-04] MEDS: INSULIN LISPRO 100 UNITS/ML SUBCUT SCH ×4 (06:14→21:00)
[2019-06-04] MEDS: BLOOD SUGAR DIAGNOSTIC STRIP TEST SCH ×4 (06:14→21:35)
[2019-06-04 08:00] VITALS: BP 150/64
[2019-06-04] MEDS: ASPIRIN 81MG EC TABLET PO SCH (08:02)
[2019-06-04] MEDS: FAMOTIDINE 20MG TABLET PO SCH ×2 (08:02→20:50)
[2019-06-04] MEDS: CLOPIDOGREL 75MG TABLET PO SCH (08:02)
[2019-06-04] MEDS: ZINC SULFATE 220 MG ( 50 ) CAPSULE PO SCH (08:02)
[2019-06-04] MEDS: ASCORBIC ACID 500 MG TABLET PO SCH ×2 (08:02→20:50)
[2019-06-04] MEDS: ENOXAPARIN 30MG/0.3ML SYR SUBCUT SCH ×2 (08:03→20:50)
[2019-06-04] MEDS: VANCOMYCIN 1 G PREMIX 200 ML IV SCH ×2 (11:14→21:41)
[2019-06-04 12:00] VITALS: BP 108/57
[2019-06-04 16:00] VITALS: BP 123/55
[2019-06-04 20:00] VITALS: BP 114/52
[2019-06-04] MEDS: NYSTATIN POWDER 15GM TOP SCH (20:50)
[2019-06-04] MEDS: ATORVASTATIN CALCIUM 10MG TABLET PO SCH (20:50)
[2019-06-05] VITALS: BP 142/60
[2019-06-05 04:00] VITALS: BP 143/56
[2019-06-05] MEDS: NYSTATIN POWDER 15GM TOP SCH ×2 (06:00→17:28)
[2019-06-05] MEDS: PIPERACILLIN/TAZOBACTAM 3.375 G in DEXT 5% WATER 100 ML IV SCH ×3 (06:00→20:30)
[2019-06-05] MEDS: BLOOD SUGAR DIAGNOSTIC STRIP TEST SCH ×4 (06:38→20:34)
[2019-06-05] MEDS: INSULIN LISPRO 100 UNITS/ML SUBCUT SCH ×4 (06:38→20:34)
[2019-06-05 06:58] LABS: CHLORIDE 109 mEq/L (98-107)
[2019-06-05 08:00] VITALS: BP 141/68
[2019-06-05] MEDS: ASPIRIN 81MG EC TABLET PO SCH (10:24)
[2019-06-05] MEDS: ENOXAPARIN 30MG/0.3ML SYR SUBCUT SCH ×2 (10:24→20:30)
[2019-06-05] MEDS: ZINC SULFATE 220 MG ( 50 ) CAPSULE PO SCH (10:24)
[2019-06-05] MEDS: FAMOTIDINE 20MG TABLET PO SCH ×2 (10:25→20:30)
[2019-06-05] MEDS: ASCORBIC ACID 500 MG TABLET PO SCH ×2 (10:25→20:30)
[2019-06-05] MEDS: VANCOMYCIN 1 G PREMIX 200 ML IV SCH ×2 (10:25→22:51)
[2019-06-05] MEDS: CLOPIDOGREL 75MG TABLET PO SCH (10:25)
[2019-06-05 12:00] VITALS: BP 115/60
[2019-06-05 16:00] VITALS: BP 131/61
[2019-06-05 20:00] VITALS: BP 139/69
[2019-06-05] MEDS: ATORVASTATIN CALCIUM 10MG TABLET PO SCH (20:30)
[2019-06-06] VITALS: BP 109/76
[2019-06-06 04:00] VITALS: BP 154/89
[2019-06-06] MEDS: NYSTATIN POWDER 15GM TOP SCH (06:15)
[2019-06-06] MEDS: PIPERACILLIN/TAZOBACTAM 3.375 G in DEXT 5% WATER 100 ML IV SCH (06:15)
[2019-06-06] MEDS: INSULIN LISPRO 100 UNITS/ML SUBCUT SCH ×2 (06:19→12:36)
[2019-06-06] MEDS: BLOOD SUGAR DIAGNOSTIC STRIP TEST SCH ×2 (06:19→12:36)
[2019-06-06 08:00] VITALS: BP 145/63
[2019-06-06] MEDS: ASPIRIN 81MG EC TABLET PO SCH (10:28)
[2019-06-06] MEDS: ZINC SULFATE 220 MG ( 50 ) CAPSULE PO SCH (10:28)
[2019-06-06] MEDS: ASCORBIC ACID 500 MG TABLET PO SCH (10:28)
[2019-06-06] MEDS: FAMOTIDINE 20MG TABLET PO SCH (10:28)
[2019-06-06] MEDS: CLOPIDOGREL 75MG TABLET PO SCH (10:28)
[2019-06-06] MEDS: ENOXAPARIN 30MG/0.3ML SYR SUBCUT SCH (10:32)
[2019-06-06] MEDS ORDERED: CLONIDINE 0.1MG TABLET PO PRN (11:30)
[2019-06-06] MEDS ORDERED: AMLODIPINE 2.5MG TABLET PO SCH (11:30)
[2019-06-06 11:45] VITALS: BP 158/58
[2019-06-06 12:00] VITALS: BP 158/58
== END 2019-06-06 13:45 | DRG 698 ==
LOC: ER 21:26 → SUPCPDRO 22:50 → 8WST 06-03 00:12 → EDBEDREQ 06-03 00:16 → EDBEDREQTM 06-03 00:16 → EDBEDREQSVC 06-03 00:16 → EDBEDREQDT 06-03 00:16 → ENRESERV 06-03 00:56
PROVIDERS: ADMIT Internal Medicine; ATTEND Internal Medicine
PROC: 0T2BX0Z Change Drainage Device in Bladder, External Approach (ICD-10-PCS; principal; 2019-06-03)
DX: T83.011A Breakdown (mechanical) of indwelling urethral catheter, initial encounter (principal); A41.9 Sepsis, unspecified organism; N39.0 Urinary tract infection, site not specified; E46 Unspecified protein-calorie malnutrition; I10 Essential (primary) hypertension; D63.8 Anemia in other chronic diseases classified elsewhere; E11.42 Type 2 diabetes mellitus with diabetic polyneuropathy; E78.00 Pure hypercholesterolemia, unspecified; F03.90 Unspecified dementia, unspecified severity, without behavioral disturbance, psychotic disturbance, mood disturbance, and anxiety; I25.10 Atherosclerotic heart disease of native coronary artery without angina pectoris; K21.9 Gastro-esophageal reflux disease without esophagitis; N40.0 Benign prostatic hyperplasia without lower urinary tract symptoms; E78.5 Hyperlipidemia, unspecified; Y84.6 Urinary catheterization as the cause of abnormal reaction of the patient, or of later complication, without mention of misadventure at the time of the procedure; Y92.89 Other specified places as the place of occurrence of the external cause; I25.2 Old myocardial infarction; Z68.25 Body mass index [BMI] 25.0-25.9, adult; Z85.46 Personal history of malignant neoplasm of prostate; Z87.891 Personal history of nicotine dependence; Z95.3 Presence of xenogenic heart valve; Z86.79 Personal history of other diseases of the circulatory system; Z79.4 Long term (current) use of insulin; Z79.02 Long term (current) use of antithrombotics/antiplatelets; Z79.899 Other long term (current) drug therapy
CPT/HCPCS: 36415; 71045; 80048; 80202; 81003; 82962; 83036; 83605; 84134; 84145; 93005; 93306; 93970; 96365; 99285; J1650; J2543; J3370; J7030; J7060